=== PATIENT | male | born 1955 | race Caucasian/White ===

== ENCOUNTER 2017-06-04 08:58 | Day surgery (SDC) | payer MEDICAID ==
[2017-06-04 09:44] VITALS: O2SAT 98
[2017-06-04] MEDS ORDERED: Gentamicin 80 mg/2mL Inj. ONE (12:48)
[2017-06-04] MEDS ORDERED: cefTRIAXone (Rocephin) 1 gm Inj ONE (12:48)
[2017-06-04] MEDS ORDERED: Propofol 10 mg/ml Inj (20 ML) ONE (12:54)
[2017-06-04] MEDS ORDERED: Midazolam 2 MG/2 ML VIAL ONE (12:54)
[2017-06-04] MEDS ORDERED: Morphine 2 mg/ml ISec IVP PRN (14:14)
[2017-06-04] MEDS ORDERED: Lactated Ringer's 1,000 ML IV SCH (14:15)
[2017-06-04 14:22] VITALS: RESP 18
[2017-06-04 15:18] VITALS: BMI 32.3
[2017-06-04 15:37] VITALS: TEMP 97.9
[2017-06-04 16:49] VITALS: BP 140/80; PULSE 68
--- NOTE | 2017-06-05 08:20 | OP ---
PROCEDURE DATE: 06/04/2017 PREOPERATIVE DIAGNOSES: Benign prostatic hypertrophy and bladder outlet obstruction. POSTOPERATIVE DIAGNOSES: Benign prostatic hypertrophy and bladder outlet obstruction. PROCEDURE: A cystoscopy with GreenLight prostate laser vaporization. ATTENDING SURGEON: Kale Jackson MD ANESTHESIA: General. SPECIMENS: There were none. DRAINS: A 20 Maldivian 3-way Luo catheter. COMPLICATIONS: There were none. OPERATIVE FINDINGS: After informed consent was obtained, the patient was taken to operating room, placed on operating table. Anesthesia was administered. The patient was placed in dorsal lithotomy position and prepped and draped in usual sterile fashion. A 22-Maldivian laser scope with visualizing obturator was placed in the patient's urethra and advanced proximally under direct vision until the bladder was entered. A full survey inspection of bladder was then performed, which revealed no stones, tumors or foreign bodies in the bladder. Both ureteral orifices were visualized and appeared within normal limits. There was grade 1 trabeculation noted. At this point, the scope was withdrawn to the level of the verumontanum. The view from the verumontanum revealed an enlarged prostate. Mostly occlusive appearing lateral lobes and there was moderate median lobe growth up into the bladder. At this point, a GreenLight laser fiber was obtained. It was passed through the visualizing obturator and using the laser, a laser vaporization was performed. The occlusive prostatic tissue was vaporized sequentially starting at the bladder neck proximally and working distally to the level of the verumontanum. All of the occlusive tissue in the lateral lobes as well as the floor, median lobe and apical tissue was vaporized using the GreenLight laser fiber. Any bleeding points encountered during the procedure were controlled using the laser. After the vaporization was complete, a view from the verumontanum revealed a widely opened bladder neck and prostatic fossa. There was good hemostasis. The bladder was then inspected. There was no chips or significant debris in the bladder. At this point, the procedure was completed, the bladder was drained. The cystoscope was removed and a 20-Maldivian 3-way Luo catheter was passed and placed to continuous bladder irrigation. Patient tolerated the procedure well. He was returned to the supine position and taken to the recovery room awake and in stable condition. Kale Jackson, MD [facility] # [id number]
== END 2017-06-04 16:45 | disposition home or self-care (01) ==
LOC: SDS 08:58
PROVIDERS: ATTEND Urology
DX: N40.1 Benign prostatic hyperplasia with lower urinary tract symptoms (principal); N32.0 Bladder-neck obstruction; I10 Essential (primary) hypertension
CPT/HCPCS: 52648; J0696; J1580; J2001; J2250; J2270; J2405; J2704; J3010; J7120 ×2

== ENCOUNTER 2017-06-06 20:27 | Emergency (ER) | payer MEDICAID ==
[2017-06-06 20:30] VITALS: BMI 32.3
== END 2017-06-06 22:42 | disposition left against medical advice (07) ==
LOC: ED 20:27
DX: Z02.89 Encounter for other administrative examinations (principal); R33.9 Retention of urine, unspecified